=== PATIENT | male | born 1995 | race Caucasian/White ===

== ENCOUNTER 2018-11-24 02:51 | Emergency (ER) | payer MEDICAID | END 2018-11-24 05:08 | disposition home or self-care (01) | LOC: E/R 02:51 | DX: S01.01XA Laceration without foreign body of scalp, initial encounter (principal); W01.0XXA Fall on same level from slipping, tripping and stumbling without subsequent striking against object, initial encounter; Y92.9 Unspecified place or not applicable | CPT/HCPCS: 12002; 70450; 99284-25 ==

== ENCOUNTER 2018-12-08 14:49 | Emergency (ER) | payer MEDICAID | END 2018-12-08 15:25 | disposition home or self-care (01) | LOC: E/R 15:25 | DX: Z48.02 Encounter for removal of sutures (principal) | CPT/HCPCS: 99281; Z7502 ==